=== PATIENT | male | born 1985 ===

== ENCOUNTER 2018-10-26 10:06 | Outpatient (CLI) | payer BC ==
--- NOTE | 2018-10-26 12:59 | ULT ---
HEPATIC ULTRASOUND WITH COLOR AND SPECTRAL DOPPLER IMAGING: Date: 10/26/18 HISTORY: Viral hepatitis. FINDINGS: Liver echogenicity is within normal limits. No evidence of gallstones, wall thickening, or pericholec ystic fluid. No significant common duct dilatation. No focal liver masses. Visualized pancreas and ri ght kidney are unremarkable. No splenomegaly. Vascular duplex with color and spectral Doppler imaging demonstrates antegrade hepatic venous and por arthur venous flow. IMPRESSION: Unremarkable hepatic ultrasound. Antegrade hepatic and portal venous flow. POS: [facility]
== END 2018-10-26 10:07 | disposition home or self-care (01) ==
LOC: BICULT 10:06
PROVIDERS: ATTEND Internal Medicine
DX: B18.1 Chronic viral hepatitis B without delta-agent (principal)
CPT/HCPCS: 76705